=== PATIENT | male | born 1955 | race Caucasian/White ===

== ENCOUNTER → 2020-07-31 | Outpatient (CLI) | payer OTHER ==
[2020-08-01 05:09] LABS: HEP B CORE AB, TOT Negative (Negative)
[2020-08-01 07:11] LABS: HBSAG SCREEN Negative (Negative)
[2020-08-01 11:15] LABS: HCV AB <0.1 (0.0-0.9)
[2020-08-03 06:10] LABS: QUANTIFERON MITOGEN VALUE >10.00 IU/mL (.); QUANTIFERON NIL VALUE 0.14 IU/mL (.); QUANTIFERON TB1 AG VALUE 0.21 IU/mL (.); QUANTIFERON-TB GOLD PLUS Negative (Negative)
== END ==
LOC: LAB 10:33
PROVIDERS: Internal Medicine
DX: Z51.81 Encounter for therapeutic drug level monitoring (principal); Z79.899 Other long term (current) drug therapy; M05.79 Rheumatoid arthritis with rheumatoid factor of multiple sites without organ or systems involvement
CPT/HCPCS: 36415; 86704; 86803; 87340